=== PATIENT | female | born 1955 | race Caucasian/White ===

== ENCOUNTER 2019-04-16 11:30 | Day surgery (SDC) | payer BC ==
[2019-04-15 08:21] VITALS: BMI 32.3
[2019-04-16] MEDS ORDERED: LIDOCAINE 1% 20 ML VIAL (10MG/ML) FOR IV START INTRADERMA ONE (12:30)
[2019-04-16] MEDS ORDERED: ONDANSETRON 4 MG/2 ML VIAL IVP ONE (12:40)
[2019-04-16] MEDS ORDERED: IV FLUID CONTINUATION 1,000 ML IV ONE (12:40)
[2019-04-16] MEDS ORDERED: LACTATED RINGERS 900 ML IV ONE (12:40)
[2019-04-16 12:57] VITALS: RESP 18; TEMP 97.7
[2019-04-16] MEDS ORDERED: PROPOFOL 10 MG/ML 20 ML VIAL IV ONE (13:35)
--- NOTE | 2019-04-16 13:58 | P.PCN ---
Date of Procedure: 04/16/19 Procedure(s) Performed: Brief history: Patient is a pleasant scheduled for an elective upper endoscopy as well as colonoscopy as a part of evaluation of Procedure performed: Esophagogastroduodenoscopy with biopsy Colonoscopy Preoperative diagnosis: GERD Screening for colon cancer Anesthesia: MAC Procedure: After informed consent was obtained from the patient was brought into the endoscopy unit and IV sedation was administered by anesthesia under continuous monitoring. Initially upper endoscopy was done. The Olympus GF 160 video endoscope was inserted inserted into the mouth and esophagus intubated without any difficulty and was gradually advanced into the stomach and duodenum and carefully examined. The bulb and second part of the duodenum appeared normal. The scope was then withdrawn into the stomach adequately insufflated with air and upon careful examination the antrum and mild gastritis and biopsies were done from this area. The body, cardia and fundus appeared normal. The scope was then withdrawn into the esophagus. The GE junction was located at 40 cm to the incisors. It appeared regular with no erythema erosions or ulcerations. Rest of the esophagus appeared normal. Patient tolerated the procedure well. At this time the patient continued to remain sedation. Initial digital rectal examination was normal. Olympus CF 160 video colonoscope was then inserted into the rectum and gradually advanced to the cecum without any difficulty. Careful examination was performed as the scope was gradually being withdrawn. The prep was excellent. The cecum, ascending colon, transverse colon, descending colon, sigmoid colon and rectum appeared normal. Retroflexion was performed in the rectum and no lesions were noted. At her sigmoid diverticulosis seen. Patient tolerated the procedure well. Impression: 1. Upper endoscopy revealed mild antral gastritis but no evidence of esophagitis or Guido's esophagus 2. Last revealed scattered sigmoidal diverticulosis. Recommendations: Findings of this examination were discussed with the patient as well as a family. She was advised to follow with the biopsy results. She will continue with AcipHex 20 mg daily and follow antireflux measures. She can have a repeat screening colonoscopy in 10 years.
[2019-04-16 14:40] VITALS: BP 99/52; PULSE 62
== END 2019-04-16 14:49 | disposition home or self-care (01) ==
LOC: ORWHC2ENDO 11:30
PROVIDERS: ATTEND Internal Medicine Gastroenterology
DX: K21.9 Gastro-esophageal reflux disease without esophagitis (principal); Z12.11 Encounter for screening for malignant neoplasm of colon; K29.50 Unspecified chronic gastritis without bleeding; I10 Essential (primary) hypertension; E78.5 Hyperlipidemia, unspecified; Z79.1 Long term (current) use of non-steroidal anti-inflammatories (NSAID); Z79.899 Other long term (current) drug therapy
CPT/HCPCS: 43239; 88305; G0121; J2405; J2704; 45378

== ENCOUNTER 2024-09-03 05:42 | Day surgery (SDC) | payer MEDICARE, BC ==
[2024-09-02 09:06] VITALS: BMI 32.3
[2024-09-03] MEDS: LACTATED RINGERS 1,000 ML IV ONE (06:16)
[2024-09-03 06:39] VITALS: TEMP 98
[2024-09-03] MEDS: LACTATED RINGERS 1,000 ML IV SCH (06:39)
[2024-09-03] MEDS ORDERED: PROPOFOL 10 MG/ML 20 ML VIAL IV ONE (07:00)
--- NOTE | 2024-09-03 07:49 | P.PCN ---
Date of Procedure: 09/03/24 Procedure(s) Performed: Brief history: Patient is a pleasant 69-year-old white female scheduled for an upper endoscopy as well as colonoscopy as a part of evaluation of GERD/intermittent dysphagia to solids and recent episode of acute sigmoid diverticulitis Procedure performed: Esophagogastroduodenoscopy with dilation and biopsy Colonoscopy Preoperative diagnosis: GERD GERD/intermittent dysphagia to solids Recent episode of acute sigmoid diverticulitis Anesthesia: MAC Procedure: After informed consent was obtained from the patient was brought into the endoscopy unit and IV sedation was administered by anesthesia under continuous monitoring. Initially upper endoscopy was done. The Olympus GF 160 video endoscope was inserted inserted into the mouth and esophagus intubated without any difficulty and was gradually advanced into the stomach and duodenum and carefully examined. The bulb and second part of the duodenum appeared normal. The scope was then withdrawn into the stomach adequately insufflated with air and upon careful examination the antrum had mild gastritis and biopsies were done from this area. Mucosa d body, cardia and fundus appeared normal. The scope was then withdrawn into the esophagus. The GE junction was located at 40 cm to the incisors. Small hiatal hernia noted. This was a distal esophageal Schatzki's ring that was dilated using 20 mm TTS balloon for 30 seconds. The GE junction appeared regular with no erythema erosions or ulcerations. Rest of the esophagus appeared normal. Patient tolerated the procedure well. At this time the patient continued to remain sedation. Initial digital rectal examination was normal. Olympus CF 160 video colonoscope was then inserted into the rectum and gradually advanced to the cecum without any difficulty. Careful examination was performed as the scope was gradually being withdrawn. The prep was excellent. The cecum, ascending colon, transverse colon, descending colon, sigmoid colon and rectum appeared normal. Scattered sigmoid diverticulosis. Retroflexion was performed in the rectum and no lesions were noted. Patient tolerated the procedure well. Impression: 1. Upper endoscopy revealed mild antral gastritis, small hiatal hernia and distal esophagus Schatzki's ring status post balloon dilation using 20 mm TTS balloon 2. Colonoscopy revealed scattered sigmoid diverticulosis but no evidence of colitis or colorectal neoplasia Recommendations: Findings of this examination were discussed with the patient as well as her family. She was advised to follow-up with the biopsy results. Clear liquids for 2 hours. Continue Aciphex 20 mg twice daily and follow antireflux measures. Recommend repeat screening colonoscopy in 10 years.
[2024-09-03 07:57] VITALS: BP 153/77; PULSE 72; RESP 18
== END 2024-09-03 08:32 | disposition home or self-care (01) ==
LOC: ORWHC2ENDO 05:42
PROVIDERS: ATTEND Internal Medicine Gastroenterology
DX: K22.2 Esophageal obstruction (principal); K21.00 Gastro-esophageal reflux disease with esophagitis, without bleeding; K29.50 Unspecified chronic gastritis without bleeding; K44.9 Diaphragmatic hernia without obstruction or gangrene; K57.30 Diverticulosis of large intestine without perforation or abscess without bleeding
CPT/HCPCS: 88305; 45378; 43239; 43249; J2704; C1726